=== PATIENT | female | born 1990 | race Caucasian/White ===

== ENCOUNTER 2022-03-08 14:46 | Emergency (ER) | payer OTHER ==
[~2022-03-08] VITALS: Ht 162.6 cm; Wt 73.5 kg
[2022-03-08 15:03] VITALS: BP 111/71
--- NOTE | 2022-03-08 15:12 | NUR ---
COVID, FLU SWABS DONE.
[2022-03-08] MEDS ORDERED: ALBU0.0912 IH (16:54)
[2022-03-08] MEDS ORDERED: IBUP-2213 PO (16:54)
[2022-03-08] MEDS ORDERED: PHEN118L PO (16:54)
[2022-03-08 18:28] VITALS: BP 117/73
--- NOTE | 2022-03-08 18:28 | NUR ---
Patient discharged with v/s stable. Written and verbal after care instructions given. Patient alert, oriented and verbalized understanding of instructions. Ambulatory with steady gait. All questions addressed prior to discharge. ID band removed. Patient advised to follow up with PMD. Rx of Ibuprofen, Albuterol Sulfate and Dimetap given. Opportunity to ask questions provided and answered. WORK NOTE HANDED TO PATIENT.
== END 2022-03-08 18:28 | disposition home or self-care (01) ==
LOC: MED 14:46
DX: J06.9 Acute upper respiratory infection, unspecified (principal); Z20.822 Contact with and (suspected) exposure to COVID-19; M54.2 Cervicalgia; M54.50 Low back pain, unspecified; J45.909 Unspecified asthma, uncomplicated
CPT/HCPCS: 99283